=== PATIENT | female | born 1945 | race Caucasian/White ===

== ENCOUNTER 2017-04-03 12:27 | Day surgery (SDC) | payer MEDICARE, OTHER ==
[~2017-04-03] VITALS: Ht 165.1 cm; Wt 67.9 kg
[~2017-04-03 12:27] MED LIST: ASPIRIN 81M81 MG/TA2 PO; LOPRESSOR 225 MG/TAB PO; NITROSTAT0.4 MG/TAB SL; NO HOME MEDICATIONS; TYLENOL 325MG325 MG PO
[2017-04-03] MEDS ORDERED: PRINIVIL10 MG PO (12:46)
[2017-04-03] MEDS ORDERED: LOPRESSOR 225 MG/TAB PO (12:46)
[2017-04-03] MEDS ORDERED: ELIQUIS 5MG PO (12:46)
[2017-04-03] MEDS ORDERED: PACERONE100 MG PO (12:47)
[2017-04-03 13:35] LABS: INR 1.3 (0.8-3.0); PROTHROMBIN TIME 14.1 SECONDS (9.7-12.8)
[2017-04-03 13:43] VITALS: BP 198/97; PULSE 51; TEMP 98.3
[2017-04-03 13:43] LABS: CALCIUM 9.3 mg/dL (8.4-10.2); CREATININE, serum 0.66 mg/dL (0.52-1.25); POTASSIUM 3.8 mmol/L (3.4-5.0)
[2017-04-03 13:47] LABS: HEMATOCRIT 38.5 % (37.0-47.0); HEMOGLOBIN 13.4 g/dl (12.5-16.0); MEAN CELL VOLUME 88 fl (80.0-100.0); MEAN CORPUSCULAR HEMOGLOBIN 31 pg (27.0-31.0); MEAN CORPUSCULAR HGB CONC 35 g/dl (33.0-37.0); MEAN PLATELET VOLUME 9.3 fl (7.4-10.4); PLATELET COUNT 221 K/mm3 (130-400); RED BLOOD COUNT 4.38 M/mm3 (4.10-5.30); REDCELL DISTRIBUTION WIDTH-CV 12.7 % (11.5-14.5); WHITE BLOOD COUNT 6.2 K/mm3 (4.8-10.8)
[2017-04-03 14:51] VITALS: BP 190/92; PULSE 62
[2017-04-03 16:15] VITALS: BP 182/78; PULSE 50
[2017-04-03 16:30] VITALS: BP 178/76; PULSE 49
[2017-04-03 16:45] VITALS: BP 174/71; PULSE 44
[2017-04-03 17:00] VITALS: BP 172/86; PULSE 45
== END 2017-04-03 17:00 | disposition home or self-care (01) ==
LOC: COL.CAR 12:27
PROVIDERS: Internal Medicine Interventional Cardiology
DX: I11.0 Hypertensive heart disease with heart failure (principal); I50.22 Chronic systolic (congestive) heart failure; I48.0 Paroxysmal atrial fibrillation; E78.5 Hyperlipidemia, unspecified; Z79.01 Long term (current) use of anticoagulants; I44.7 Left bundle-branch block, unspecified; E66.9 Obesity, unspecified
CPT/HCPCS: C1769; C1894; J0690; J2250; J3010; J7030; Q9967

== ENCOUNTER 2019-04-04 22:40 | Emergency (ER) | payer MEDICARE, OTHER ==
[~2019-04-04] VITALS: Ht 157.5 cm; Wt 76.8 kg
[~2019-04-04 22:40] MED LIST changes: +ELIQUIS 5MG PO; +PACERONE100 MG PO; +PRINIVIL10 MG PO
[2019-04-04 23:09] VITALS: TEMP 98.4
[2019-04-04] MEDS ORDERED: PRINIVIL20 MG PO (23:14)
[2019-04-04] MEDS ORDERED: VITAMIN D 1001000 IU PO (23:15)
[2019-04-04] MEDS ORDERED: B-121000 MCG PO (23:15)
[2019-04-04 23:34] LABS: BASO # 0.1 (0.0-0.2); BASO % 0.8 % (0.0-2.0); EOS # 0.2 (0.0-0.7); EOS % 2.9 % (0-4.0); GRAN # 3.7 (1.4-6.5); GRAN % 48.9 % (42.2-75.2); HEMATOCRIT 42.7 % (37.0-47.0); HEMOGLOBIN 14.7 g/dl (12.5-16.0); LYMPH # 2.7 (1.2-3.4); LYMPH % 36.2 % (20.0-51.0); MEAN CELL VOLUME 89 fl (80.0-100.0); MEAN CORPUSCULAR HEMOGLOBIN 31 pg (27.0-31.0); MEAN CORPUSCULAR HGB CONC 34 g/dl (33.0-37.0); MONO # 0.8 (0.1-0.6); MONO % 10.9 % (1.7-9.3); PLATELET COUNT 234 K/mm3 (130-400); REDCELL DISTRIBUTION WIDTH-CV 12.2 % (11.5-14.5)
[2019-04-04 23:42] LABS: ALANINE AMINOTRANSFERASE 18 U/L (9-52); ALBUMIN 4.5 gm/dL (3.5-5.0); ALKALINE PHOSPHATASE 77 U/L (50-136); ANION GAP 11 mmol/L (7-16); AST,SGOT 29 U/L (15-37); BILIRUBIN,TOTAL 0.3 mg/dL (0.0-1.0); BLOOD UREA NITROGEN 12 mg/dL (7-17); CALCIUM 9.6 mg/dL (8.4-10.2); CARBON DIOXIDE 23 mmol/L (22-30); CHLORIDE 108 mmol/L (98-107); CREATININE, serum 0.74 (0.52-1.25); GLUCOSE 113 mg/dL (74-106); MAGNESIUM 2.1 mg/dL (1.6-2.3); POTASSIUM 3.9 mmol/L (3.4-5.0); SODIUM 141 mmol/L (137-145); TOTAL PROTEIN 7.9 gm/dL (6.4-8.2)
[2019-04-04 23:57] LABS: TROPONIN-I < 0.012 ng/mL (0.000-0.035)
[2019-04-05] MEDS ORDERED: PACERONE400 MG PO (02:01)
[2019-04-05 02:06] VITALS: BP 147/86; PULSE 60
== END 2019-04-05 02:06 | disposition home or self-care (01) ==
LOC: COL.ER 22:40
PROVIDERS: Emergency Medicine
DX: T82.198A Other mechanical complication of other cardiac electronic device, initial encounter (principal); I48.92 Unspecified atrial flutter; I10 Essential (primary) hypertension; I48.91 Unspecified atrial fibrillation; Z79.01 Long term (current) use of anticoagulants
CPT/HCPCS: J0282; J7060